=== PATIENT | male | born 1985 | race Caucasian/White ===

== ENCOUNTER 2016-06-18 07:11 | Emergency (ER) | payer BC ==
[2016-06-18 07:21] VITALS: BP 115/61
--- NOTE | 2016-06-18 07:38 | UC ---
Back Pain HPI - HPI Summary HPI Summary: right side flank pain x 2 days , no radiation of the pain , pain is achy 2 out of 10 , constant, hx of bladder infection and kidney stones, no fever, no chills , no n/v - History of Current Complaint Chief Complaint: UCBackPain Stated Complaint: BACK PAIN Time Seen by Provider: 06/18/16 07:14 Hx Obtained From: Patient Onset/Duration: Gradual Onset, Lasting Days - 2, Still Present, Worse Since - last night Timing: Constant, Lasting Days - 2 Severity Initially: Moderate Severity Currently: Moderate Back Pain: Is Discrete @ - right lower back / flank pain Character: Aching Aggravating: Movement, Bending Alleviating: Rest Associated Signs And Symptoms: Positive: Flank Pain - right. Negative: Swelling , Redness, Bruising, Fever, Weakness, Numbness, Tingling, Abdominal Pain, Bladder Incontinence, Bowel Incontinence, Pain with Weight Bearing - Allergies/Home Medications Allergies/Adverse Reactions: Allergies Allergy/AdvReac Type Severity Reaction Status Date / Time No Known Allergies Allergy Verified 06/18/16 07:21 Home Medications: Home Medications Potassium 99 mg PO QAM 06/18/16 [History Confirmed 06/18/16] PMH/Surg Hx/FS Hx/Imm Hx Endocrine History Of: Denies: Diabetes, Thyroid Disease Cardiovascular History Of: Denies: Cardiac Disorders, Hypertension Respiratory History Of: Denies: COPD, Asthma GI/ History Of: Reports: Kidney Stones, Renal Disease Denies: Ulcer - Surgical History Surgical History: Yes Surgery Procedure, Year, and Place: Spinal Fusion T11-L1 08/16/2009, partial left kidney removed - renal mass 02/14/2015, - Family History Known Family History: Positive: Other - no FMH of renal disease - Social History Alcohol Use: Daily Alcohol Amount: 1-4 Substance Use Type: None Smoking Status (MU): Never Smoked Tobacco Review of Systems Constitutional: Negative Skin: Negative Eyes: Negative ENT: Negative Respiratory: Negative Cardiovascular: Negative Gastrointestinal: Negative Genitourinary: Negative Musculoskeletal: Other: - right lower back pain All Other Systems Reviewed And Are Negative: Yes Physical Exam Triage Information Reviewed: Yes Appearance: Well-Appearing, No Pain Distress, Well-Nourished Vital Signs: Initial Vital Signs Temp 97.6 F 06/18/16 07:16 Pulse 71 06/18/16 07:16 Resp 18 06/18/16 07:16 BP 115/61 06/18/16 07:16 Vital Signs Reviewed: Yes Eyes: Positive: Conjunctiva Clear ENT: Positive: Normal ENT inspection, Hearing grossly normal, Pharynx normal Neck exam: Normal Neck: Positive: Supple, Nontender, No Lymphadenopathy Respiratory: Positive: Chest non-tender, Lungs clear, Normal breath sounds Cardiovascular: Positive: RRR, No Murmur, Pulses Normal Abdomen Description: Positive: Nontender, Soft. Negative: CVA Tenderness (R), CVA Tenderness (L), Distended, Guarding Bowel Sounds: Positive: Present Musculoskeletal: Positive: Other: - lower back : on swelling, no spasm, no tenderness, + pain with flexion and extension Back Pain Course/Dx - Differential Dx/Diagnosis Provider Diagnoses: lower back pain Discharge - Discharge Plan Condition: Stable Disposition: HOME Patient Education Materials: Low Back Strain (ED) Referrals: Annie S[facility]NCHEZ[facility] [Primary Care Provider] - If Needed
== END 2016-06-18 07:51 | disposition home or self-care (01) ==
LOC: UCCORT 07:11
DX: M54.5 Low back pain (principal); N28.89 Other specified disorders of kidney and ureter; Z98.1 Arthrodesis status
CPT/HCPCS: 99211; G0463

== ENCOUNTER 2017-04-28 14:22 | Emergency (ER) | payer BC ==
[2017-04-28 17:30] VITALS: BP 125/91
--- NOTE | 2017-04-28 17:44 | UC ---
Complaint Male HPI - HPI Summary HPI Summary: 32 YEAR OLD MALE PRESENTS WITH COMPLAINS SEVERE RIGHT SCROTAL SWELLING/PAIN AND BURNING WITH URINATION. I AM ABOUT TORSION AND WILL SEND HIM TO THE ER. HE PREFERS [facility] WHERE HIS UROLOGIST PRACTICES. - History of Current Complaint Chief Complaint: UCGU Stated Complaint: URINARY COMPLAINT Time Seen by Provider: 04/28/17 17:44 Hx Obtained From: Patient Onset/Duration: Sudden Onset Severity Initially: Severe Severity Currently: Severe - Allergies/Home Medications Allergies/Adverse Reactions: Allergies Allergy/AdvReac Type Severity Reaction Status Date / Time No Known Allergies Allergy Verified 04/28/17 17:29 PMH/Surg Hx/FS Hx/Imm Hx Previously Healthy: Yes - Surgical History Surgical History: Yes Surgery Procedure, Year, and Place: Spinal Fusion T11-L1 08/16/2009, partial left kidney removed - renal mass 02/14/2015, - Family History Known Family History: Positive: Other - no FMH of renal disease - Social History Alcohol Use: Daily Alcohol Amount: 1-2 Substance Use Type: None Smoking Status (MU): Never Smoked Tobacco - Immunization History Most Recent Influenza Vaccination: none Review of Systems Constitutional: Negative Skin: Negative Eyes: Negative ENT: Negative Respiratory: Negative Cardiovascular: Negative Gastrointestinal: Negative Genitourinary: Dysuria, Other - RIGHT TESTICULAR SWELLING Motor: Negative Neurovascular: Negative Musculoskeletal: Negative Neurological: Negative Psychological: Negative All Other Systems Reviewed And Are Negative: Yes Physical Exam Triage Information Reviewed: Yes Vital Signs: Initial Vital Signs Temp 37.5 C 04/28/17 17:24 Pulse 98 04/28/17 17:24 Resp 17 04/28/17 17:24 BP 125/91 04/28/17 17:24 Pulse Ox 99 04/28/17 17:24 Complaint Male Course/Dx - Differential Dx/Diagnosis Provider Diagnoses: RIGHT SCROTAL SWELLING. DYSURIA Discharge - Discharge Plan Condition: Stable Disposition: OTHER Discharge Disposition Comment: PATIENT SUGGESTED TO GO TO THE ER Patient Education Materials: Testicle Pain (ED), Scrotal Pain (ED) Referrals: Annie S[facility]NCHEZ[facility] [Primary Care Provider] - Additional Instructions: PATIENT SUGGESTED TO GO TO [facility] ER FOR SEVERE RIGHT TESTICULAR SWELLING
--- NOTE | 2017-04-30 11:44 | UC ---
Progress - Progress Note Progress Note: Please add ciprofloxacin for two weeks. I have sent in Rx.
== END 2017-04-28 18:24 ==
LOC: UCCORT 14:22
DX: N50.89 Other specified disorders of the male genital organs (principal); R30.0 Dysuria
CPT/HCPCS: 81003; 87077; 87086; 87186; 99212; G0463

== ENCOUNTER 2018-04-03 08:48 | Emergency (ER) | payer BC ==
[2018-04-03 09:02] VITALS: BP 129/78
--- NOTE | 2018-04-03 09:48 | ED ---
GI/ HPI - HPI Summary HPI Summary: 33 yr old with pressure and flank pain for past couple of days. 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 he does not feels sick. No fever or chills. He feels like he has a UTI like he has had in the past. No other complaints. - History of Current Complaint Chief Complaint: UCGU Time Seen by Provider: 04/03/18 09:39 Stated Complaint: URINARY Pain Intensity: 3 - Allergy/Home Medications Allergies/Adverse Reactions: Allergies Allergy/AdvReac Type Severity Reaction Status Date / Time No Known Allergies Allergy Verified 04/03/18 08:58 Home Medications: Home Medications Esomeprazole Magnesium [Nexium 24Hr] 20 mg PO DAILY 04/03/18 [History Confirmed 04/03/18] PMH/Surg Hx/FS Hx/Imm Hx Endocrine/Hematology History: Denies: Hx Diabetes, Hx Thyroid Disease Cardiovascular History: Denies: Hx Hypertension Respiratory History: Denies: Hx Asthma, Hx Chronic Obstructive Pulmonary Disease (COPD) GI History: Denies: Hx Ulcer History: Reports: Hx Kidney Stones, Hx Renal Disease - Cancer History Cancer Type, Location and Year: renal - Surgical History Surgery Procedure, Year, and Place: Spinal Fusion T11-L1 08/16/2009, partial left kidney removed - renal mass 02/14/2015, Infectious Disease History: Yes Infectious Disease History: Reports: 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 Denies: Hx Hepatitis, Hx Human Immunodeficiency Virus (HIV), Traveled Outside the [place] in Last 30 Days - Family History Known Family History: Positive: Other - no FMH of renal disease - Social History Occupation: Employed Full-time Alcohol Use: Daily Alcohol Amount: 1-2 Substance Use Type: Reports: None Smoking Status (MU): Never Smoked Tobacco Review of Systems Constitutional: Negative Positive: flank pain All Other Systems Reviewed And Are Negative: Yes Physical Exam Triage Information Reviewed: Yes Vital Signs On Initial Exam: Initial Vitals Temp Pulse Resp BP Pulse Ox 97.7 F 58 15 129/78 98 04/03/18 08:57 04/03/18 08:57 04/03/18 08:57 04/03/18 08:57 04/03/18 08:57 Vital Signs Reviewed: Yes Appearance: Positive: Well-Appearing, No Pain Distress Skin: Positive: Warm, Skin Color Reflects Adequate Perfusion Head/Face: Positive: Normal Head/Face Inspection Eyes: Positive: EOMI ENT: Positive: Normal ENT inspection Respiratory/Lung Sounds: Positive: Clear to Auscultation, Breath Sounds Present Cardiovascular: Positive: RRR. Negative: Murmur Abdomen Description: Positive: Nontender. Negative: CVA Tenderness (R), CVA Tenderness (L) Neurological: Positive: Alert, Oriented to Person Place, Time Psychiatric: Positive: Normal Diagnostics - Vital Signs Vital Signs Temp Pulse Resp BP Pulse Ox 04/03/18 08:57 97.7 F 58 15 129/78 98 - Laboratory Lab Results: Lab Results 04/03/18 Range/Units 09:10 POC Urine Color Yellow POC Urine Clarity Clear POC Urine pH 7.5 (5-9) POC Ur Specif Mercedes >= 1.030 (1.010-1.030) POC Urine Protein 1+ A (Negative) POC Ur Glucose (UA) Negative (Negative) POC Urine Ketones Negative (Negative) POC Urine Blood Negative (Negative) POC Urine Nitrite Negative (Negative) POC Urine Bilirubin Negative (Negative) POC Urine Urobilinogen 0.2 (Negative) POC U Leukocyte Esteras Trace A (Negative) Lab Statement: Any lab studies that have been ordered have been reviewed, and results considered in the medical decision making process. GIGU Course/Dx - Course Course Of Treatment: 33 yr old with UTI. Rx with cipro - Diagnoses Provider Diagnoses: UTI (urinary tract infection) Discharge - Sign-Out/Discharge Documenting (check all that apply): Patient Departure All imaging exams completed and their final reports reviewed: No Studies - Discharge Plan Condition: Good Disposition: HOME Prescriptions: Ciprofloxacin TAB* [Cipro 500 MG TAB*] 500 mg PO BID #14 tab Patient Education Materials: Urinary Tract Infection in Men (ED) Referrals: Annie [facility]NCHE[facility] [Primary Care Provider] - 1 Week - Billing Disposition and Condition Condition: GOOD Disposition: Home
== END 2018-04-03 09:52 | disposition home or self-care (01) ==
LOC: UCCORT 08:48
DX: N39.0 Urinary tract infection, site not specified (principal); T14.8XXS Other injury of unspecified body region, sequela
CPT/HCPCS: 81003; 87086; 99212; G0463

== ENCOUNTER 2018-07-01 13:19 | Emergency (ER) | payer BC ==
[2018-07-01 13:41] VITALS: BP 124/82
--- NOTE | 2018-07-01 13:53 | UC ---
Complaint Male HPI - HPI Summary HPI Summary: Pt presents with c/o low back pain and UTI symptoms familiar to the pt. Pt has neurogenic bladder and uses straight cath to empty bladder. - History of Current Complaint Chief Complaint: UCGU Stated Complaint: URINARY Time Seen by Provider: 07/01/18 13:38 Hx Obtained From: Patient Onset/Duration: Sudden Onset, Lasting Days - 1 and 1/2 days., Still Present Timing: Constant Severity Initially: Mild Severity Currently: Mild Pain Intensity: 2 Character: Burning Aggravating Factor(s): Voiding Associated Signs And Symptoms: Positive: Back Pain - Allergies/Home Medications Allergies/Adverse Reactions: Allergies Allergy/AdvReac Type Severity Reaction Status Date / Time No Known Allergies Allergy Verified 07/01/18 13:38 PMH/Surg Hx/FS Hx/Imm Hx Previously Healthy: Yes - Surgical History Surgical History: Yes Surgery Procedure, Year, and Place: Spinal Fusion T11-L1 08/16/2009, partial left kidney removed - renal mass 02/14/2015, - Family History Known Family History: Positive: Other - no FMH of renal disease - Social History Occupation: Employed Full-time Lives: With Family Alcohol Use: Daily Alcohol Amount: 1-2 Substance Use Type: None Smoking Status (MU): Never Smoked Tobacco Have You Smoked in the Last Year: No - Immunization History Most Recent Influenza Vaccination: none Review of Systems All Other Systems Reviewed And Are Negative: Yes Constitutional: Positive: Negative Skin: Positive: Negative Eyes: Positive: Negative ENT: Positive: Negative Respiratory: Positive: Negative Cardiovascular: Positive: Negative Gastrointestinal: Positive: Negative Genitourinary: Positive: Negative Motor: Positive: Negative Neurovascular: Positive: Negative Musculoskeletal: Positive: Myalgia - low back pain Neurological: Positive: Negative Psychological: Positive: Negative Is Patient Immunocompromised?: No Physical Exam Triage Information Reviewed: Yes Appearance: Well-Appearing Vital Signs: Initial Vital Signs Temp 98.3 F 07/01/18 13:37 Pulse 88 07/01/18 13:37 Resp 16 07/01/18 13:37 BP 124/82 07/01/18 13:37 Pulse Ox 98 07/01/18 13:37 Vital Signs Reviewed: Yes Eye Exam: Normal ENT Exam: Normal ENT: Positive: Hearing grossly normal Neck exam: Normal Respiratory: Positive: Normal breath sounds Cardiovascular Exam: Normal Musculoskeletal: Positive: Other: - at baseline for preexisitng condition Neurological Exam: Other - at baseline for preexisting condition Psychological Exam: Normal Skin Exam: Normal Complaint Male Course/Dx - Differential Dx/Diagnosis Differential Diagnosis/HQI/PQRI: Urinary Tract Infection Provider Diagnosis: UTI (urinary tract infection) Discharge - Sign-Out/Discharge Documenting (check all that apply): Patient Departure All imaging exams completed and their final reports reviewed: No Studies - Discharge Plan Condition: Stable Disposition: HOME Prescriptions: Cephalexin CAP* [Keflex 500 CAP*] 500 mg PO Q8H #21 cap Patient Education Materials: Urinary Tract Infection in Men (ED) Referrals: Annie S[facility]NCHEZ[facility] [Primary Care Provider] - If Needed - Billing Disposition and Condition Condition: STABLE Disposition: Home - Attestation Statements Provider Attestation: Per institutional requirements, I have reviewed the chart, however, I was not consulted specifically or made aware of this patient by the midlevel provider. I did not personally evaluate, interact with , or disposition this patient.
--- NOTE | 2018-07-03 07:12 | UC ---
- Progress Note Progress Note: urine culture - no growth no change brenda 07/03/18 Course/Dx - Diagnoses Provider Diagnoses: UTI (urinary tract infection) Discharge - Sign-Out/Discharge Documenting (check all that apply): Post-Discharge Follow Up All imaging exams completed and their final reports reviewed: No Studies - Discharge Plan Condition: Stable Disposition: HOME Prescriptions: Cephalexin CAP* [Keflex 500 CAP*] 500 mg PO Q8H #21 cap Patient Education Materials: Urinary Tract Infection in Men (ED) Referrals: Annie [facility]NCHE[facility] [Primary Care Provider] - If Needed - Billing Disposition and Condition Condition: STABLE Disposition: Home
== END 2018-07-01 13:58 | disposition home or self-care (01) ==
LOC: UCCORT 13:19
DX: N39.0 Urinary tract infection, site not specified (principal); N31.9 Neuromuscular dysfunction of bladder, unspecified; Z90.5 Acquired absence of kidney
CPT/HCPCS: 81003; 87086; 99212; G0463